=== PATIENT | male | born 1940 | race Caucasian/White ===

== ENCOUNTER 2016-10-31 13:42 | Inpatient (IN) | payer OTHER, BC ==
[~2016-10-31] VITALS: Ht 182.9 cm; Wt 94.3 kg
[~2016-10-31 13:42] MED LIST: AMLODIPINE BESY10 MG PO; AMLODIPINE BESYL5 MG PO; APRESOLINE25 MG PO; ASPIR 8181 M1 PO; ASPIRIN325 MG PO; ATORVASTATIN CA20 MG PO; AUGMENTIN875 MG PO; BENICAR HCT1 TABLE2 PO; BENICAR20 MG PO; Bactrim,Septra DS 80 PO; CATAPRES0.1 MG PO; CHLORTHALIDONE25 MG PO; CHROMIUM400 MCG PO; CLONIDINE HCL0.1 MG PO; DILTIAZEM 24HR240 MG PO; Ecotrin PO; FLONASE16 G1 BOTH NARES; GLUCOPHAGE500 MG PO; HYGROTON25 MG PO; KLOR-CON M2020 MEQ PO; LIPITOR20 MG PO; LO-DOSE ASPIRIN81 M1 PO; LOSARTAN POTASS50 MG PO; Lopressor PO; METFORMIN HCL1000 MG PO; METFORMIN HCL500 MG PO; METOPROLOL SUC100 MG PO; METOPROLOL SUC200 MG PO; NORVASC10 MG PO; PRIMIDONE50 MG PO; Toprol XL PO; Tylenol Regular Stre PO; XANAX0.25 MG PO; XARELTO20 MG PO
[2016-10-31 15:41] LABS: BASOPHIL COUNT 0.1 K/uL (0-0.1); EOSINOPHIL (%) 2.2 % (0-5); EOSINOPHIL COUNT 0.2 K/uL (0-0.3); HEMATOCRIT 36.6 % (38.0-50.0); IMMATURE GRANULOCYTE (%) 0.1 % (0.0-0.7); IMMATURE GRANULOCYTE COUNT 0.1 K/uL; LYMPHOCYTE COUNT 1.8 K/uL (1.0-2.8); MCH 26.6 PG (29.0-34.0); MCHC 32.2 G/DL (30.0-36.0); MCV 82.6 FL (86-99); MONOCYTE (%) 11.2 % (3-12); MONOCYTE COUNT 0.8 K/uL (0-0.8); NEUTROPHIL (%) 60.9 % (45-76); NEUTROPHIL COUNT 4.4 K/uL (1.8-6.4); PLATELET COUNT 219 K/uL (156-360); RBC DIS.WIDTH-CV 13.9 % (11.8-14.6); RBC DIS.WIDTH-SD 40.6 % (39-53); RED BLOOD COUNT 4.43 M/uL (4.00-5.50); WHITE BLOOD COUNT 7.2 K/uL (4.1-10.2)
[2016-10-31 15:48] LABS: CHLORIDE 105 mEq/L (99-109); POTASSIUM 3.6 mEq/L (3.7-5.4); SODIUM 143 mEq/L (136-147)
[2016-10-31 15:50] LABS: GLUCOSE 166 mg/dL (70-99)
[2016-10-31 15:51] LABS: ANION GAP 10 MEQ/L (2-14)
[2016-10-31 15:54] LABS: GFR ESTIMATE (CALCULATED) 53 mL/min/
[2016-10-31 15:55] LABS: UREA NITROGEN (BUN) 21 mg/dL (9-23)
[2016-10-31 16:11] LABS: COLOR YELLOW ((YELLOW))
[2016-10-31 16:12] LABS: ADD MIUA? YES; BILIRUBIN NEGATIVE; BLOOD NEGATIVE; GLUCOSE (STRIP) NEGATIVE; KETONES NEGATIVE; LEUKOCYTES NEGATIVE; NITRITE NEGATIVE; PROTEIN (STRIP) TRACE; UROBILINOGEN 0.2 MG/DL (0.2-1.0)
[2016-10-31 16:20] LABS: BACTERIA NONE SEEN /HPF; EPITHELIAL CELLS NONE SEEN /HPF; MUCUS 1+ /LPF; RED BLOOD CELLS 0-5 /HPF (0-5); WHITE BLOOD CELLS 0-5 /HPF (0-5)
[2016-10-31 20:06] LABS: TROP-I INTERPRETATION NEGATIVE; TROPONIN-I < 0.01 ng/mL (0.0-0.30)
[2016-10-31 21:51] LABS: INTER. NORMALIZED RATIO 1.1; PTT 27.4 (25-32)
[2016-11-01] MEDS ORDERED: ALPRAZOLAM0.25 M2 PO (01:00)
[2016-11-01] MEDS ORDERED: NORVASC10 MG PO (01:03)
[2016-11-01] MEDS ORDERED: K-DUR10 MEQ PO (01:07)
[2016-11-01] MEDS ORDERED: HYDROCHLOROTHIA25 MG PO (01:08)
[2016-11-01] MEDS ORDERED: LOPRESSOR100 M1 PO (01:09)
[2016-11-01 02:31] LABS: TROP-I INTERPRETATION NEGATIVE; TROPONIN-I 0.01 ng/mL (0.0-0.30)
[2016-11-01 08:09] LABS: POINT-OF-CARE METER ID UU13113702
[2016-11-01 08:47] LABS: HEMATOCRIT 35.4 % (38.0-50.0); MCH 26.6 PG (29.0-34.0); MCHC 32.8 G/DL (30.0-36.0); MCV 81.2 FL (86-99); MEAN PLAT.VOLUME 10.5 uM^3 (9.0-12.4); PLATELET COUNT 174 K/uL (156-360); RBC DIS.WIDTH-SD 40.2 % (39-53); RED BLOOD COUNT 4.36 M/uL (4.00-5.50); WHITE BLOOD COUNT 6.9 K/uL (4.1-10.2)
[2016-11-01 08:59] LABS: CHLORIDE 110 mEq/L (99-109); POTASSIUM 3.7 mEq/L (3.7-5.4); SODIUM 141 mEq/L (136-147)
[2016-11-01 09:01] LABS: GLUCOSE 175 mg/dL (70-99)
[2016-11-01 09:03] LABS: ANION GAP 9 MEQ/L (2-14); TOTAL BILIRUBIN 0.4 mg/dL (0.0-1.0)
[2016-11-01 09:05] LABS: ALKALINE PHOSPHATASE 93 IU/L (3-129); GFR ESTIMATE (CALCULATED) > 59 mL/min/
[2016-11-01 09:06] LABS: UREA NITROGEN (BUN) 15 mg/dL (9-23)
[2016-11-01 09:07] LABS: TROP-I INTERPRETATION NEGATIVE; TROPONIN-I 0.02 ng/mL (0.0-0.30)
[2016-11-01 11:58] LABS: POINT-OF-CARE METER ID UU13113702
[2016-11-01 16:30] LABS: POINT-OF-CARE METER ID UU13113702
[2016-11-01 20:50] VITALS: BP 155/60
[2016-11-01 21:03] VITALS: BP 155/60
[2016-11-01 22:06] LABS: POINT-OF-CARE METER ID UU13113781
[2016-11-01 23:00] VITALS: BP 113/59
[2016-11-02 03:00] VITALS: BP 142/63
[2016-11-02 08:24] LABS: ALKALINE PHOSPHATASE 73 IU/L (3-129); ANION GAP 9 MEQ/L (2-14); CHLORIDE 107 MEQ/L (99-109); GFR ESTIMATE (CALCULATED) > 59 mL/min/; GLUCOSE 140 mg/dL (70-99); POTASSIUM 3.8 MEQ/L (3.7-5.4); SAMPLE HEMOLYSIS CHECK 0; SAMPLE ICTERIC CHECK 0; SAMPLE LIPEMIA CHECK 0; SODIUM 140 MEQ/L (136-147); TOTAL BILIRUBIN 0.4 MG/DL (0.0-1.0); UREA NITROGEN (BUN) 14 mg/dL (9-23)
[2016-11-02 08:35] LABS: MEAN PLAT.VOLUME 11.7 uM^3 (9.0-12.4); PLATELET COUNT 175 K/uL (156-360)
[2016-11-02 08:42] LABS: ABS NEUTROPHIL COUNT 3.42; ANISOCYTOSIS 1+; HEMATOCRIT 31.7 % (38.0-50.0); HYPOCHROMASIA 2+; MACROCYTES OCC; MCH 27.4 PG (29.0-34.0); MCHC 33.1 G/DL (30.0-36.0); MCV 82.8 FL (86-99); MICROCYTOSIS 1+; OVALOCYTES OCC; PLAT.SUFFICIENCY ADEQUATE; RBC DIS.WIDTH-CV 14.5 % (11.8-14.6); RBC DIS.WIDTH-SD 43.3 % (39-53); RED BLOOD COUNT 3.83 M/uL (4.00-5.50); USER ID TLW; WHITE BLOOD COUNT 5.2 K/uL (4.1-10.2)
[2016-11-02 09:00] VITALS: BP 182/77
[2016-11-02 09:37] LABS: DIGOXIN 0.3 ng/mL (0.8-2.0)
[2016-11-02 12:00] VITALS: BP 187/79
[2016-11-02 14:18] LABS: DELETE MACHINE DIFF? YES
[2016-11-02 18:22] VITALS: BP 189/80
[2016-11-02 20:00] VITALS: BP 167/77
[2016-11-02 21:38] LABS: POINT-OF-CARE METER ID UU13113698
[2016-11-02 23:55] VITALS: BP 179/79
[2016-11-03 03:58] VITALS: BP 168/78
[2016-11-03 07:13] LABS: MCH 26.2 PG (29.0-34.0); MCHC 32.2 G/DL (30.0-36.0); MCV 81.3 FL (86-99); PLATELET COUNT 185 K/uL (156-360); RBC DIS.WIDTH-SD 41.5 % (39-53); RED BLOOD COUNT 4.43 M/uL (4.00-5.50); WHITE BLOOD COUNT 6.6 K/uL (4.1-10.2)
[2016-11-03 07:40] VITALS: BP 152/72
[2016-11-03 07:51] LABS: ANION GAP 9 MEQ/L (2-14); CHLORIDE 106 MEQ/L (99-109); GFR ESTIMATE (CALCULATED) > 59 mL/min/; GLUCOSE 141 mg/dL (70-99); POTASSIUM 3.6 MEQ/L (3.7-5.4); SAMPLE HEMOLYSIS CHECK 0; SAMPLE ICTERIC CHECK 0; SAMPLE LIPEMIA CHECK 0; SODIUM 141 MEQ/L (136-147); UREA NITROGEN (BUN) 11 mg/dL (9-23)
[2016-11-03 11:19] VITALS: BP 131/79
[2016-11-03] MEDS ORDERED: CLONIDINE HCL0.1 MG PO (15:46)
[2016-11-03] MEDS ORDERED: VALSARTAN160 MG PO (15:47)
[2016-11-03] MEDS ORDERED: NORVASC10 MG PO (15:47)
[2016-11-03] MEDS ORDERED: HYGROTON25 MG PO (15:47)
[2016-11-03 16:11] LABS: POINT-OF-CARE METER ID UU14174216
== END 2016-11-03 17:50 | disposition home or self-care (01) | DRG 309 ==
LOC: EME 13:42 → 4EAST 11-01 00:29 → EDOF 11-01 00:29 → 4EAST 11-01 20:46
PROVIDERS: Hospitalist; Internal Medicine; Physician Assistant
DX: I48.0 Paroxysmal atrial fibrillation (principal); N17.9 Acute kidney failure, unspecified; I70.1 Atherosclerosis of renal artery; I65.23 Occlusion and stenosis of bilateral carotid arteries; I11.9 Hypertensive heart disease without heart failure; E11.9 Type 2 diabetes mellitus without complications; I95.9 Hypotension, unspecified; D64.9 Anemia, unspecified; R07.89 Other chest pain; E87.6 Hypokalemia; K21.9 Gastro-esophageal reflux disease without esophagitis; Z79.01 Long term (current) use of anticoagulants; G25.0 Essential tremor
CPT/HCPCS: 71010; 80048; 80053; 80162; 81003; 82948; 84484; 85025; 85027; 85610; 85730; 93005; 93306; 99281; 99285; J1160; J1815; J3480; J7030

== ENCOUNTER 2016-12-29 09:42 | Emergency (ER) | payer OTHER, BC ==
[~2016-12-29] VITALS: Ht 182.9 cm; Wt 92.8 kg
[~2016-12-29 09:42] MED LIST changes: +ALPRAZOLAM0.25 M2 PO; +HYDROCHLOROTHIA25 MG PO; +K-DUR10 MEQ PO; +LOPRESSOR100 M1 PO; +VALSARTAN160 MG PO
[2016-12-29 10:44] LABS: HEMATOCRIT 37.3 % (38.0-50.0); MCH 26.8 PG (29.0-34.0); MCHC 32.4 G/DL (30.0-36.0); MCV 82.7 FL (86-99); MEAN PLAT.VOLUME 10.7 uM^3 (9.0-12.4); PLATELET COUNT 212 K/uL (156-360); RBC DIS.WIDTH-CV 13.5 % (11.8-14.6); RBC DIS.WIDTH-SD 40.4 % (39-53); RED BLOOD COUNT 4.51 M/uL (4.00-5.50); WHITE BLOOD COUNT 6.8 K/uL (4.1-10.2)
[2016-12-29 10:59] LABS: CHLORIDE 105 mEq/L (99-109); POTASSIUM 3.7 mEq/L (3.7-5.4); SODIUM 140 mEq/L (136-147)
[2016-12-29 11:01] LABS: GLUCOSE 194 mg/dL (70-99)
[2016-12-29 11:02] LABS: ANION GAP 12 MEQ/L (2-14)
[2016-12-29 11:05] LABS: GFR ESTIMATE (CALCULATED) 53 mL/min/
[2016-12-29 11:06] LABS: UREA NITROGEN (BUN) 22 mg/dL (9-23)
[2016-12-29 11:09] LABS: TROP-I INTERPRETATION NEGATIVE; TROPONIN-I 0.01 ng/mL (0.0-0.30)
[2016-12-29 13:57] LABS: TROP-I INTERPRETATION NEGATIVE; TROPONIN-I 0.01 ng/mL (0.0-0.30)
[2016-12-29 14:41] VITALS: BP 123/65
== END 2016-12-29 14:44 | disposition home or self-care (01) ==
LOC: EME 09:42
PROVIDERS: Emergency Medicine
DX: R07.9 Chest pain, unspecified (principal); I10 Essential (primary) hypertension; E11.9 Type 2 diabetes mellitus without complications; E78.5 Hyperlipidemia, unspecified; Z85.46 Personal history of malignant neoplasm of prostate
CPT/HCPCS: 71010; 80048; 84484; 85027; 93005; 99281; 99285; J7030

== ENCOUNTER 2017-03-15 11:07 | Emergency (ER) | payer OTHER, BC ==
[~2017-03-15] VITALS: Ht 193 cm; Wt 93.2 kg
[2017-03-15 12:32] LABS: ADD MIUA? YES; BILIRUBIN SMALL; BLOOD NEGATIVE; COLOR AMBER ((YELLOW)); GLUCOSE (STRIP) NEGATIVE; KETONES 5; LEUKOCYTES NEGATIVE; NITRITE NEGATIVE; PROTEIN (STRIP) 30; SPECIFIC GRAVITY 1.029 (1.000-1.030)
[2017-03-15 12:36] LABS: BACTERIA NONE SEEN /HPF; EPITHELIAL CELLS RARE /HPF; HYALINE CASTS TNTC /LPF; MUCUS 3+ /LPF; RED BLOOD CELLS 0-5 /HPF (0-5); UCUL ADDED? NO; WHITE BLOOD CELLS 0-5 /HPF (0-5)
[2017-03-15 14:34] LABS: HEMATOCRIT 41.7 % (38.0-50.0); MCHC 32.9 G/DL (30.0-36.0); MCV 85.1 FL (86-99); MEAN PLAT.VOLUME 10.4 uM^3 (9.0-12.4); PLATELET COUNT 233 K/uL (156-360); RBC DIS.WIDTH-CV 13.2 % (11.8-14.6); RBC DIS.WIDTH-SD 40.6 % (39-53); WHITE BLOOD COUNT 7.7 K/uL (4.1-10.2)
[2017-03-15 14:42] LABS: CHLORIDE 105 mEq/L (99-109); POTASSIUM 4.9 mEq/L (3.7-5.4); SODIUM 138 mEq/L (136-147)
[2017-03-15 14:44] LABS: GLUCOSE 136 mg/dL (70-99)
[2017-03-15 14:45] LABS: ANION GAP 8 MEQ/L (2-14)
[2017-03-15 14:48] LABS: GFR ESTIMATE (CALCULATED) 48 mL/min/; UREA NITROGEN (BUN) 21 mg/dL (9-23)
[2017-03-15 15:20] LABS: TOTAL BILIRUBIN 0.3 mg/dL (0.0-1.0)
[2017-03-15 15:21] LABS: ALKALINE PHOSPHATASE 124 IU/L (3-129)
[2017-03-15 15:24] LABS: DIRECT BILIRUBIN 0.1 mg/dL (0.0-0.3)
[2017-03-15 15:25] LABS: LIPASE 155 U/L (1.0-51.0); TROP-I INTERPRETATION NEGATIVE; TROPONIN-I < 0.01 ng/mL (0.0-0.30)
[2017-03-15] MEDS ORDERED: ZOFRAN ODT4 MG PO (17:47)
[2017-03-15 18:08] VITALS: BP 170/59
== END 2017-03-15 18:09 | disposition home or self-care (01) ==
LOC: EME 11:07
DX: R11.2 Nausea with vomiting, unspecified (principal); R19.7 Diarrhea, unspecified; R74.8 Abnormal levels of other serum enzymes; N28.9 Disorder of kidney and ureter, unspecified; E11.9 Type 2 diabetes mellitus without complications; E78.5 Hyperlipidemia, unspecified; I10 Essential (primary) hypertension; Z79.84 Long term (current) use of oral hypoglycemic drugs
CPT/HCPCS: 74176; 80048; 80076; 81003; 83690; 84484; 85027; 99281; 99285; J7030

== ENCOUNTER 2017-05-11 17:07 | Emergency (ER) | payer OTHER, BC ==
[~2017-05-11] VITALS: Ht 182.9 cm; Wt 93.3 kg
[~2017-05-11 17:07] MED LIST changes: +ZOFRAN ODT4 MG PO
[2017-05-11 17:59] LABS: EOSINOPHIL (%) 1.4 % (0-5); EOSINOPHIL COUNT 0.1 K/uL (0-0.3); HEMATOCRIT 37.8 % (38.0-50.0); IMMATURE GRANULOCYTE (%) 0.3 % (0.0-0.7); INSTRUMENT ABS NEUTROPHIL CT 4.6 K/uL; LYMPHOCYTE COUNT 1.4 K/uL (1.0-2.8); MCHC 32.5 G/DL (30.0-36.0); MCV 85.9 FL (86-99); MONOCYTE (%) 11.5 % (3-12); MONOCYTE COUNT 0.8 K/uL (0-0.8); NEUTROPHIL (%) 66.3 % (45-76); NEUTROPHIL COUNT 4.6 K/uL (1.8-6.4); PLATELET COUNT 202 K/uL (156-360); RBC DIS.WIDTH-CV 12.7 % (11.8-14.6); RBC DIS.WIDTH-SD 39.7 % (39-53)
[2017-05-11 18:06] LABS: INTER. NORMALIZED RATIO 1.1; PROTHROMBIN TIME 12.2 SEC (10.2-12.9)
[2017-05-11 18:08] LABS: CHLORIDE 106 mEq/L (99-109); POTASSIUM 4.3 mEq/L (3.7-5.4); SODIUM 142 mEq/L (136-147)
[2017-05-11 18:10] LABS: GLUCOSE 164 mg/dL (70-99)
[2017-05-11 18:11] LABS: ANION GAP 10 MEQ/L (2-14)
[2017-05-11 18:14] LABS: GFR ESTIMATE (CALCULATED) 45 mL/min/
[2017-05-11 18:15] LABS: UREA NITROGEN (BUN) 20 mg/dL (9-23)
[2017-05-11] MEDS ORDERED: CATAPRES0.1 MG PO (19:01)
[2017-05-11] MEDS ORDERED: ATIVAN0.5 MG PO (19:01)
[2017-05-11 20:17] VITALS: BP 213/91
== END 2017-05-11 20:18 | disposition home or self-care (01) ==
LOC: EME 17:07
PROVIDERS: Emergency Medicine
DX: F41.9 Anxiety disorder, unspecified (principal); I10 Essential (primary) hypertension; R25.1 Tremor, unspecified; E11.9 Type 2 diabetes mellitus without complications; Z79.84 Long term (current) use of oral hypoglycemic drugs; I48.91 Unspecified atrial fibrillation; E78.5 Hyperlipidemia, unspecified; Z79.01 Long term (current) use of anticoagulants; Z85.46 Personal history of malignant neoplasm of prostate
CPT/HCPCS: 70450; 80048; 85025; 85610; 99281; 99284; J7040

== ENCOUNTER 2017-06-24 11:05 | Emergency (ER) | payer OTHER, BC ==
[~2017-06-24] VITALS: Ht 182.9 cm; Wt 93.1 kg
[~2017-06-24 11:05] MED LIST changes: +ATIVAN0.5 MG PO
[2017-06-24 11:30] LABS: MCH 28.4 PG (29.0-34.0); MCHC 33.1 G/DL (30.0-36.0); MCV 85.6 FL (86-99); MEAN PLAT.VOLUME 10.5 uM^3 (9.0-12.4); PLATELET COUNT 225 K/uL (156-360); RBC DIS.WIDTH-CV 12.7 % (11.8-14.6); RBC DIS.WIDTH-SD 39.2 % (39-53); RED BLOOD COUNT 4.09 M/uL (4.00-5.50); WHITE BLOOD COUNT 8.2 K/uL (4.1-10.2)
[2017-06-24 11:38] LABS: CHLORIDE 101 mEq/L (99-109); POTASSIUM 4.2 mEq/L (3.7-5.4); SODIUM 136 mEq/L (136-147)
[2017-06-24 11:40] LABS: GLUCOSE 216 mg/dL (70-99)
[2017-06-24 11:42] LABS: ANION GAP 10 MEQ/L (2-14); TOTAL BILIRUBIN 0.2 mg/dL (0.0-1.0)
[2017-06-24 11:44] LABS: ALKALINE PHOSPHATASE 112 IU/L (3-129); GFR ESTIMATE (CALCULATED) 57 mL/min/
[2017-06-24 11:45] LABS: UREA NITROGEN (BUN) 19 mg/dL (9-23)
[2017-06-24 13:40] LABS: LIPASE 154 U/L (1.0-51.0)
[2017-06-24 13:50] LABS: ADD MIUA? NO; BILIRUBIN NEGATIVE; BLOOD NEGATIVE; COLOR YELLOW ((YELLOW)); GLUCOSE (STRIP) NEGATIVE; KETONES NEGATIVE; LEUKOCYTES NEGATIVE; NITRITE NEGATIVE; PROTEIN (STRIP) NEGATIVE; SPECIFIC GRAVITY 1.019 (1.000-1.030); UCUL ADDED? NO; UROBILINOGEN 0.2 MG/DL (0.2-1.0)
[2017-06-24 14:02] LABS: INTER. NORMALIZED RATIO 1.2; PROTHROMBIN TIME 13.7 SEC (10.2-12.9)
[2017-06-24 14:47] LABS: AMYLASE 90 IU/L (1-118)
[2017-06-24 17:58] VITALS: BP 164/90
== END 2017-06-24 17:59 | disposition home or self-care (01) ==
LOC: EME 11:05
PROVIDERS: Physician Assistant
DX: R10.32 Left lower quadrant pain (principal); R91.8 Other nonspecific abnormal finding of lung field; I48.91 Unspecified atrial fibrillation; E11.9 Type 2 diabetes mellitus without complications; Z79.84 Long term (current) use of oral hypoglycemic drugs; Z79.01 Long term (current) use of anticoagulants; I10 Essential (primary) hypertension; E78.5 Hyperlipidemia, unspecified; Z85.46 Personal history of malignant neoplasm of prostate; J45.909 Unspecified asthma, uncomplicated
CPT/HCPCS: 74177; 76705; 80053; 81003; 82150; 83690; 85027; 85610; 85730; 93005; 99281; 99284; J7030

== ENCOUNTER → 2017-08-03 | Emergency (ER) | payer OTHER, BC ==
[~2017-08-03] VITALS: Ht 182.9 cm; Wt 93.0 kg
[~2017-08-03] MED LIST changes: +OMEPRAZOLE40 M1 PO; +PIOGLITAZONE HC15 MG PO; +SPIRONOLACTONE50 MG PO
[2017-08-03 10:50] LABS: POINT-OF-CARE METER ID UU13113778; POINT-OF-CARE USER ID NUTJNM
[2017-08-03 12:02] LABS: HEMATOCRIT 36.4 % (38.0-50.0); MCH 28.2 PG (29.0-34.0); MCHC 32.7 G/DL (30.0-36.0); MCV 86.3 FL (86-99); MEAN PLAT.VOLUME 11.4 uM^3 (9.0-12.4); PLATELET COUNT 235 K/uL (156-360); RBC DIS.WIDTH-CV 12.7 % (11.8-14.6); RBC DIS.WIDTH-SD 39.8 % (39-53); RED BLOOD COUNT 4.22 M/uL (4.00-5.50); WHITE BLOOD COUNT 9.4 K/uL (4.1-10.2)
[2017-08-03 12:12] LABS: CHLORIDE 105 mEq/L (99-109); POTASSIUM 4.3 mEq/L (3.7-5.4); SODIUM 139 mEq/L (136-147)
[2017-08-03 12:13] LABS: GLUCOSE 156 mg/dL (70-99)
[2017-08-03 12:15] LABS: ANION GAP 11 MEQ/L (2-14)
[2017-08-03 12:17] LABS: GFR ESTIMATE (CALCULATED) 45 mL/min/
[2017-08-03 12:18] LABS: UREA NITROGEN (BUN) 28 mg/dL (9-23)
[2017-08-03 12:24] LABS: TROP-I INTERPRETATION NEGATIVE; TROPONIN-I < 0.01 ng/mL (0.0-0.30)
[2017-08-03 12:33] LABS: ADD MIUA? NO; BILIRUBIN NEGATIVE; BLOOD NEGATIVE; COLOR YELLOW ((YELLOW)); GLUCOSE (STRIP) NEGATIVE; KETONES NEGATIVE; LEUKOCYTES NEGATIVE; NITRITE NEGATIVE; PROTEIN (STRIP) 30; SPECIFIC GRAVITY 1.021 (1.000-1.030); UROBILINOGEN 0.2 MG/DL (0.2-1.0)
[2017-08-03 16:45] VITALS: BP 127/56
== END | disposition home or self-care (01) ==
LOC: EME 10:07
PROVIDERS: Nurse Practitioner Family
DX: E86.0 Dehydration (principal); S00.01XA Abrasion of scalp, initial encounter; W18.39XA Other fall on same level, initial encounter; R42 Dizziness and giddiness; I49.3 Ventricular premature depolarization; I48.91 Unspecified atrial fibrillation; Z79.01 Long term (current) use of anticoagulants; Z85.46 Personal history of malignant neoplasm of prostate; Z85.830 Personal history of malignant neoplasm of bone; I10 Essential (primary) hypertension; E11.9 Type 2 diabetes mellitus without complications; Z79.84 Long term (current) use of oral hypoglycemic drugs
CPT/HCPCS: 70450; 71020; 80048; 81003; 82948; 84484; 85027; 93005; 99281; 99284; J7030